=== PATIENT | female | born 1995 | race African-American/Black ===

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

== ENCOUNTER 2017-02-26 20:35 | Emergency (ER) | payer MEDICAID ==
[~2017-02-26] VITALS: Ht 157.5 cm; Wt 54.9 kg
[~2017-02-26 20:35] MED LIST changes: +DOXYCYCLINE HY100 M2 PO; +FLUCONAZOLE100 MG ORAL
[2017-02-26 22:00] LABS: APPEARANCE,URINE CLEAR; KETONES,URINE NEGATIVE (NEGATIVE); LEUKOCYTE ESTERASE ,URINE 1+ (NEGATIVE); NITRITE,URINE NEGATIVE (NEGATIVE); PH,URINE 8 (4.5-8.0); PROTEIN,URINE 1+ (NEGATIVE); UROBILINOGEN,URINE NORMAL MG/DL (0.0-1.0)
[2017-02-26 22:03] LABS: BACTERIA,URINE FEW /HPF; RBC,URINE 0-2 /HPF (0 - 2); SQUAMOUS EPITHELIAL CELL,UR FEW /LPF (NONE/OCC)
[2017-02-26] MEDS ORDERED: NITROFURANTOIN100 M2 ORAL (22:06)
[2017-02-26 22:15] VITALS: BP 138/95
--- NOTE | 2017-02-26 22:28 | Emergency Room Report ---
History of Present Illness General Chief Complaint: General Complaint Source: Patient Present Illness HPI 21YOF walk-in with "not feeling well for 1 year." On more specific ROS, endorses nausea, dysuria, suprapubic discomfort Denies chance of being Denies fever/chills, flank pain, vomiting, diarrhea Denies other medical problems. Allergies: Coded Allergies: No Known Allergies (Unverified , 02/26/17) Patient History Past Medical History: none Past Surgical History: none Pertinent Family History: none Social History: Denies: alcohol use, drug use, smoking Last Menstrual Period: unk Now: Yes Immunizations: UTD Reviewed Nursing Documentation: PMH: Agreed, PSxH: Agreed Nursing Documentation-PMH Hx Cardiac Problems: No Hx Asthma: Yes Hx Cancer: No Hx Gastrointestinal Problems: No Hx Neurological Problems: No Review of Systems All Other Systems: negative except mentioned in HPI Physical Exam Vital Signs Date Time Temp Pulse Resp B/P Pulse Ox O2 Delivery O2 Flow Rate FiO2 02/26/17 20:38 98.1 72 16 138/95 100 Room Air Sp02 EP Interpretation: reviewed, normal General Appearance: normal inspection, well appearing, no apparent distress, alert, GCS 15, non-toxic Head: normocephalic, atraumatic Eyes: bilateral eye EOMI, bilateral eye PERRL ENT: normal ENT inspection, hearing grossly normal, normal voice Neck: normal inspection, full range of motion, supple, no bony tend Respiratory: normal inspection, lungs clear, normal breath sounds, no respiratory distress, no retraction, no wheezing Cardiovascular #1: regular rate, rhythm, no edema Gastrointestinal: normal inspection, normal bowel sounds, non tender, soft, no guarding, no hernia Genitourinary: no CVA tenderness Musculoskeletal: normal inspection, back normal, normal range of motion, Edwina' s Sign negative Neurologic: normal inspection, alert, oriented x3, responsive, company controller III-XII nml as tested, motor strength/tone normal, speech normal Psychiatric: normal inspection, judgement/insight normal, mood/affect normal Skin: normal inspection, normal color, no rash Medical Decision Making Diagnostic Impression: Primary Impression: UTI (urinary tract infection) Qualified Codes: N30.00 - Acute cystitis without hematuria ER Course Urine preg negative UA with +LE, bacteria Will tx for UTI given symptoms Non-focal abdomen, stable vitals Low suspicion for other acute bacterial or surgical process requiring additional lab testing, admission DC home Last Vital Signs Date Time Temp Pulse Resp B/P Pulse Ox O2 Delivery O2 Flow Rate FiO2 02/26/17 22:15 98.1 16 138/95 100 Room Air 02/26/17 20:38 72 Status: improved Disposition: HOME, SELF-CARE Condition: Improved Scripts Nitrofurantoin Monohyd/M-Cryst* (MACROBID 100 MG*) 100 Mg Capsule 100 MG ORAL EVERY 12 HOURS for 7 Days, #14 CAP Prov: VICENTA ALMANZA M.D. 02/26/17 Patient Instructions: Dysuria VICENTA ALMANZA M.D. Feb 26, 2017 22:28
== END 2017-02-26 22:16 | disposition home or self-care (01) ==
LOC: EMR 21:12
DX: N30.00 Acute cystitis without hematuria (principal); R11.0 Nausea
CPT/HCPCS: 81003; 81025; 99283

== ENCOUNTER 2020-07-10 16:28 | Emergency (ER) | payer MEDICAID ==
[~2020-07-10] VITALS: Ht 157.5 cm; Wt 72.6 kg
[~2020-07-10 16:28] MED LIST changes: +NITROFURANTOIN100 M2 ORAL
[2020-07-10 16:35] VITALS: BP 124/65
--- NOTE | 2020-07-10 16:35 | NUR ---
Note christen in EDM - 07/10/20 at 1813 by KENIA ER DISCHARGE NOTE: Patient is cleared to be discharged per ERMD, pt is aox4, on room air, with stable vital signs. pt was given dc and prescription instructions, pt was able to verbalize understanding, pt id band removed . pt is able to ambulate with steady gait. pt took all belongings.
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
[2020-07-10] MEDS ORDERED: LIDODERM700 M1 TOPIC (16:59)
[2020-07-10] MEDS ORDERED: ROBAXIN-750750 MG PO (16:59)
[2020-07-10] MEDS ORDERED: TYLENOL EXTRA500 MG ORAL (16:59)
[2020-07-10] MEDS ORDERED: Acetaminophen 500mg (ES) tab ORAL ONE (17:00)
[2020-07-10] MEDS ORDERED: Methocarbamol 750mg tab ORAL ONE (17:00)
[2020-07-10 17:19] VITALS: BP 135/68
--- NOTE | 2020-07-10 17:19 | NUR ---
ER DISCHARGE NOTE: Patient is cleared to be discharged per ERMD, pt is aox4, on room air, with stable vital signs. pt was given dc and prescription instructions, pt was able to verbalize understanding, pt id band removed . pt is able to ambulate with steady gait. pt took all belongings.
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
== END 2020-07-10 17:19 | disposition home or self-care (01) ==
LOC: EMR 17:19
DX: M54.5 Low back pain (principal)
CPT/HCPCS: 99282